=== PATIENT | male | born 1990 | race African-American/Black ===

== ENCOUNTER 2020-05-10 19:06 | Emergency (ER) | payer SELFPAY ==
[~2020-05-10] VITALS: Ht 195.6 cm; Wt 72.6 kg
[2020-05-10 19:10] VITALS: BP 112/75
--- NOTE | 2020-05-10 19:10 | NUR ---
Nurse Note: Pt arrived white, thin discharge from penis since AM. Pt denies pain, bumps on penis.
[2020-05-10] MEDS ORDERED: Azithromycin 250mg tab ORAL ONE (20:00)
[2020-05-10] MEDS ORDERED: Lidocaine 1% MPF 10mg/ml 5ml INJ ONE (20:00)
--- NOTE | 2020-05-10 20:16 | Emergency Room Report ---
History of Present Illness General Chief Complaint: Male Urogenital Problems Source: Patient Present Illness HPI 30-year-old male with no significant past medical history here complaining of 1 day of white/yellow penile discharge. Reports that he was sexually active unprotected 4 days ago. Denies any dysuria, urinary frequency, hematuria, testicular pain, suprapubic pain and pressure, fever and chills, nausea or vomiting. Denies any lesions in the penile area. Has not taken medication for symptom relief. Allergies: Coded Allergies: No Known Allergies (Unverified , 05/10/20) COVID-19 Screening Contact w/high risk pt: No Experienced COVID-19 symptoms?: No COVID-19 Testing performed [employer]: No Patient History Past Medical History: see triage record Past Surgical History: none Pertinent Family History: none Immunizations: UTD Reviewed Nursing Documentation: PMH: Agreed; PSxH: Agreed Nursing Documentation-PMH Past Medical History: No Stated History Review of Systems All Other Systems: negative except mentioned in HPI Physical Exam Vital Signs Date Time Temp Pulse Resp B/P (MAP) Pulse Ox O2 Delivery O2 Flow Rate FiO2 05/10/20 19:09 98.4 82 14 112/75 (87) 98 Room Air Sp02 EP Interpretation: reviewed, normal General Appearance: no apparent distress, alert, GCS 15, non-toxic Head: normocephalic, atraumatic Eyes: bilateral eye normal inspection, bilateral eye PERRL ENT: hearing grossly normal, no angioedema, normal voice Neck: full range of motion, supple/symm/no masses Respiratory: no respiratory distress, no retraction, no accessory muscle use, speaking full sentences Cardiovascular #1: regular rate, rhythm Gastrointestinal: soft Rectal: deferred Genitourinary: no CVA tenderness, deferred Musculoskeletal: back normal Neurologic: alert, motor strength/tone normal, oriented x3, sensory intact, responsive, speech normal Psychiatric: judgement/insight normal, memory normal, mood/affect normal, no suicidal/homicidal ideation Skin: no rash Lymphatic: no adenopathy Medical Decision Making PA Attestation All diagnosis and treatment plans were discussed and reviewed by my supervising physician Dr. Davenport Diagnostic Impression: Primary Impression: Penile discharge ER Course 30-year-old male with no significant past medical history here complaining of 1 day of white/yellow penile discharge. Reports that he was sexually active unprotected 4 days ago. Denies any dysuria, urinary frequency, hematuria, testicular pain, suprapubic pain and pressure, fever and chills, nausea or vomiting. Denies any lesions in the penile area. Has not taken medication for symptom relief. Ddx considered but are not limited to: chlamydia, Gonorrhea, syphilis, HIV, herpes 1 or 2 Vital signs: are WNL, pt. is afebrile H&PE are most consistent with : Penile discharge possibly chlamydia gonorrhea ORDERS: None ED INTERVENTIONS: Rocephin IM, azithromycin p.o. DISCHARGE: At this time pt. is stable for d/c to home. Will provide printed patient care instructions, and any necessary prescriptions. Care plan and follow up instructions have been discussed with the patient prior to discharge. Advised sexual encounter to perform using protection, gave a list of STD, advised to return to the emergency room for worsening symptoms Last Vital Signs Date Time Temp Pulse Resp B/P (MAP) Pulse Ox O2 Delivery O2 Flow Rate FiO2 05/10/20 19:09 98.4 82 14 112/75 (87) 98 Room Air Disposition: HOME, SELF-CARE Condition: Stable Referrals: NOT CHOSEN IPA/MD,REFERRING (PCP) Patient Instructions: Chlamydia, Male, Gonorrhea Additional Instructions: Take medication as directed, follow-up with your primary care provider, if worsening symptoms return to the emergency room Jaylan Whitley May 10, 2020 20:16
--- NOTE | 2020-05-10 20:30 | NUR ---
ER DISCHARGE NOTE: Patient is cleared to be discharged per ERMD. Pt is aox4, on room air, with stable vital signs. Pt was given dc and prescription instructions; pt was able to verbalize understanding. Informed pt to follow up [facility] PCP within 7 days. Pt id band removed without complications. Pt is able to ambulate with steady gait. Pt took all belongings.
[2020-05-10 20:42] VITALS: BP 112/75
== END 2020-05-10 20:30 | disposition home or self-care (01) ==
LOC: EMR 19:36
DX: R36.9 Urethral discharge, unspecified (principal)
CPT/HCPCS: 96372; 99283; J0696